=== PATIENT | male | born 1950 | race Caucasian/White ===

== ENCOUNTER 2020-04-22 18:59 | Emergency (ER) | payer OTHER ==
[~2020-04-22] VITALS: Ht 180.3 cm; Wt 77.1 kg
[~2020-04-22 18:59] MED LIST: ALLOPURINOL 30300 M2 PO; IMBRUVICA140 MG PO; IRON325 PO; VITAMIN B-12100 MCG PO; [UNRECOGNIZED DRUG - OTHER] PO
[2020-04-22] MEDS ORDERED: FLAGYL500 M1 PO (21:38)
[2020-04-22] MEDS ORDERED: CLINDAMYCIN HC150 MG PO (21:38)
[2020-04-22 21:55] VITALS: BP 119/59
== END 2020-04-22 21:56 | disposition home or self-care (01) ==
LOC: ER 18:59
DX: L03.114 Cellulitis of left upper limb (principal); Z79.899 Other long term (current) drug therapy; Z88.0 Allergy status to penicillin

== ENCOUNTER 2021-07-27 08:59 | Inpatient (IN) | payer OTHER ==
[~2021-07-27] VITALS: Ht 180.3 cm; Wt 70.8 kg
[~2021-07-27 08:59] MED LIST changes: +CLINDAMYCIN HC150 MG PO; +FLAGYL500 M1 PO
[2021-07-27 09:07] VITALS: BP 119/45
[2021-07-27 09:41] LABS: HEMATOCRIT 34.3 % (42.0-52.0); HEMOGLOBIN 10.6 gm/dL (14.0-18.0); MCH 31.6 pg (26.0-34.0); MCV 102.1 fL (80.0-100.0); RBC 3.36 mil/uL (4.50-6.00); RDW 17.4 % (10.5-14.5)
[2021-07-27 09:54] LABS: WBC 106.3 thou/uL (4.0-11.0)
[2021-07-27 10:03] LABS: CALCIUM 8.7 mg/dL (8.5-10.1); POTASSIUM 5.2 mmol/L (3.5-5.1)
[2021-07-27 10:12] LABS: ALBUMIN 3.6 g/dL (3.4-5.0); TOTAL BILIRUBIN 1.1 mg/dL (0.2-1.0); TOTAL PROTEIN 5.8 g/dL (6.4-8.2)
[2021-07-27 11:05] LABS: ABSOLUTE NEUTROPHILS 2.1 thou/uL (1.4-8.2)
[2021-07-27 11:07] LABS: ATYPICAL LYMPHS 12 %; BLASTS 1 %
[2021-07-27 11:08] LABS: ANISOCYTOSIS 1+
[2021-07-27 11:09] LABS: PLATELET COUNT 60 thou/uL (150-400)
[2021-07-27] MEDS ORDERED: METFORMIN HCL1000 MG PO (11:52)
[2021-07-27 13:15] VITALS: BP 120/64
[2021-07-27 13:31] VITALS: BP 129/58
[2021-07-27 19:12] VITALS: BP 144/79
--- NOTE | 2021-07-27 22:53 | NUR ---
PT ALERT AND ORIENTED X4. VSS 98.8. NO C/O PAIN SO FAR TONIGHT. 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 NO DRAINAGE NOTED. SCAB INTACT. HAND IS SWOLLEN. 2+ EDEMA NOTED. BS 68 HS SNACK GIVEN WITH OJ. BS 108 AFTER SNACK. WILL GIVENA BX ORDERED IV. NO S/S DISTRESS.
[2021-07-28 03:06] LABS: GLYCOHEMOGLOBIN (HGB A1C) 10.3 % (4.8-5.6)
[2021-07-28 03:18] VITALS: BP 121/57
[2021-07-28 06:06] LABS: IgA 10 mg/dL (61-437); IgG 251 mg/dL (603-1613)
[2021-07-28 06:14] LABS: HEMATOCRIT 30.2 % (42.0-52.0); HEMOGLOBIN 9.7 gm/dL (14.0-18.0); MCH 32.3 pg (26.0-34.0)
[2021-07-28 06:17] LABS: MCHC 32.2 g/dL (28.0-37.0); MCV 100.4 fL (80.0-100.0); RBC 3.01 mil/uL (4.50-6.00); RDW 17.3 % (10.5-14.5)
[2021-07-28 06:34] LABS: WBC 72.4 thou/uL (4.0-11.0)
[2021-07-28 06:36] LABS: CALCIUM 8.5 mg/dL (8.5-10.1); CREATININE 0.9 mg/dL (0.7-1.3); POTASSIUM 4.6 mmol/L (3.5-5.1)
--- NOTE | 2021-07-28 06:44 | NUR ---
PT PROGRESSING TOWARDS D/C GOALS. VSS LOW GRADE TEMP. WBC HAS IMPROVED TO 72.4. COUNSELING CASE MANAGER NOTIFIED. NO ORDERS GIVEN. PT DENIED NEED FOR PAIN PILL THIS AM. RIGHT ARM UP ON PILLOWS. PT HAS BEEN NPO AFTER MN. PT GOING FOR MRI.
[2021-07-28 07:06] VITALS: BP 117/59
[2021-07-28 07:08] LABS: IgM < 5 mg/dL (15-143)
--- NOTE | 2021-07-28 13:57 | NUR ---
PT ALERT ORIENTED X4, DENIES CHEST PAIN, NAUSEA OR VOMITTING. ON ROOM AIR. HAD MRI OF THE RUGHT HAND TODAY. THE HAND LOOKS LESS SWOLLEN, CONTINUE TO HAVE SOME REDDNESS AND WARMTH. PRDERS FOR PT TO TX TO 4S, GIVEN BY MECCA ANN TO GIVE ROBERT REPORT NO ANSWER ANA
[2021-07-28 14:26] VITALS: BP 118/65
--- NOTE | 2021-07-28 16:21 | NUR ---
INITIAL ASSESSMENT: SW reviewed chart and spoke with nursing and attending physician. Pt was admitted from home due to right hand cellulitis. Pt with hx of CLL. Pt is on IV abx. MRI is pending at this time. SW met with pt at bedside. Introduced role of SW. Pt is alert/orientated x 4. Pt reports he lives at home. Prior to admission, pt was independent with ADLs. No use of DME. Pt states he has had HH in the past, but is unsure the name of HH provider. Pt has also used home infusion in the past. No hx of post-acute placement. Pt's PCP is Dr. Raji Sanchez. Pt's oncologist is Dr. Dubois. Pt to transfer to from 3W this afternoon. Plan is for pt to discharge home when medically stable. SW is following to assist as needed with discharge planning.
[2021-07-28 16:27] VITALS: BP 124/67
--- NOTE | 2021-07-28 16:53 | NUR ---
Pt transferred from 3W. Pt a&ox4. IV antibiotics infusing. Rt hand swollen and warm to the touch. Home med in ot's bin. Family at bedside. Will continue to monitor.
[2021-07-28 20:20] VITALS: BP 113/91
--- NOTE | 2021-07-29 03:48 | NUR ---
ASSUMED PT CARE AT 1900.PT ALERT/CALM AND PLEASANT.PT C/O PAIN TO HIS R HAND,MANAGED WITH MED.R HAND SWOLLEN,RED AND WARM TO TOUCH.PT CONT ON IV ABX.PT UP ADLIB IN HIS ROOM WITH A STEADY GAIT.VANCO TROUGH WAS 10.PT ABLE TO MAKE HIS NEEDS KNOWN.CALL LIGHT WITHIN REACH.
[2021-07-29 08:09] VITALS: BP 107/64
--- NOTE | 2021-07-29 10:11 | HC ---
[facility] [place] [address] CONSULTATION Name: JOSEPH ALBARADO Room #: 438-P ADM IN M.R.#: [id number] Admission: 07/27/21 Attend Phys: Ragini Contreras MD Discharge: Date of : 46 Report #: [id number] THIS REPORT FOR: cc: FAM - Family physician unknown FAM - Family physician unknown Rafael Dubois MD ~ cc: Sergey Fletcher MD, Marko Thornton DATE OF SERVICE: 07/28/2021 REQUESTING PHYSICIAN: Dr. Ragini Contreras REASON FOR CONSULTATION: History of CLL. HISTORY OF PRESENT ILLNESS: The patient is a 70-year-old gentleman, very well known to me, who was originally diagnosed with CLL in 2003 with a white count of 271,000. He most recently has been on Imbruvica 420 mg daily with a white count recently around 24,000, platelets around 42,000 and a hemoglobin around 10.3. The patient was working last week and he got his finger pinched between the truck bed and a tire rim and about 3 days later over the weekend, he developed some puffiness at the back of his hand. He was seen in the ER last night and admitted for antibiotics for cellulitis. Yesterday, his white count was 106,000, today at 72,000. Hemoglobin fairly stable at 9.7, platelets at 42,000. Note that his chemistries are good. His ANC was 2100. The patient denies definite fever, though he did feel warm last night. No definite sweats. He is aware of small lymph nodes in both axilla. He does not have abdominal pain. No recent diarrhea, no new constipation. No new skin rashes other than from scratching himself working. PAST MEDICAL HISTORY: Notable for the chronic lymphocytic leukemia diagnosed in 2003. Back then, he had prednisone and Cytoxan, then he had FCR last given in 12/2004. He also had ibrutinib begun on 12/06/2016. He has recently been on 420 mg daily. He is having further improvement in his disease. He also has a history of diabetes type 2, history of optic neuritis due to multiple sclerosis. He also has had some mild anemia and mild thrombocytopenia. SOCIAL HISTORY: He is . 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 He appears to have a supportive family. He is a never smoker. He does drink may be alcohol, maybe 6 cans of beer per week. No vaping. MEDICATIONS: Currently include hydrocodone p.r.n., insulin on a sliding scale, Imbruvica restarted at 420 mg. He is also on cefepime 2 grams q. 12 hours. He is on electrolyte replacements. Also, vancomycin 1 gram q. [address] [address] CONSULTATION Name: JOSEPH ALBARADO Room #: 438-P ADM IN M.R.#: [id number] Admission: 07/27/21 Attend Phys: Ragini Contreras MD Discharge: Date of : 46 Report #: [id number] PHYSICAL EXAMINATION: GENERAL: The patient appears his stated age. VITAL SIGNS: Height is 5 feet 11, 180.3 cm; weight 156 pounds or 70.85 kilograms. Recent temperature 98.6, blood pressure 117/59, O2 sat 98%, respirations 20, pulse 65. HEENT: Face is symmetrical. LUNGS: Clear. Posterior and anterior symmetric, unlabored. HEART: Regular rate. LYMPH NODES: Does have some small lymph nodes ____ in both axillae, but more underneath the right axilla where they are more maybe ____ or 1 cm in size versus the ones on the left side are more like pea or corn size. ABDOMEN: Does have a spleen that is at the costal margin on the left, down about maybe 1 or 2 cm, which is an improvement and most recently stable for this patient. EXTREMITIES: He does have some puffiness on the back of his right hand, seen it for the first time, so I do not know if this is improved from yesterday or not, patient thinks it is not much different yet. LABORATORY DATA: Lab count as mentioned above is notable for the white count now at around 70,000. Creatinine of 0.9, glucose of 205. Transaminases normal. Total bilirubin slightly up at 1.1. White count was 72.4 this morning, hemoglobin 9.7, MCV 100.4, platelets of 42. ANC yesterday was 2100. IgG low at 251, though has been below the 300 for about the last 8 months in our office. Note that his IgA and IgM are also low. IMAGING: Done here including some soft tissue of the right hand do not show any fluid collection. I believe an MRI is pending. ASSESSMENT AND PLAN: 1. Chronic lymphocytic leukemia. We will restart Imbruvica 420 mg daily and monitor white count. Neutrophils appear adequate for helping fight infection. 2. Anemia. Hemoglobin stable. Monitor. 3. Thrombocytopenia. No unusual bleeding. Continue monitoring. 4. Cellulitis. Continue antibiotics per Infectious Disease. 5. Hypogammaglobulinemia, not new. From my point, I do not feel like replacement is necessary, but we will defer to Infectious Disease if they feel otherwise. 6. Diabetes type 2. Management per others. 7. History of optic neuritis due to multiple sclerosis. No current issues. <ELECTRONICALLY SIGNED> By: Rafael Dubois MD 07/29/21 [id number] [id number] Rafael Dubois MD /nt
--- NOTE | 2021-07-29 11:26 | NUR ---
ASSUMED PT CARE THIS AM. PT IS ALERT & ORIENTED X4. PT HAS IV SITE ON LFA SALINE LOCKED. PT IS ACCUCHECK ACHS. PT C/O OF CONSTIPATION AND GIVEN MIRALAX THIS AM. PT IS UP AD LUCIE. CHANGED SCHEDULED HOME MED PER PT REQUEST. WILL CONTINUE TO MONITOR PT. FOLLOW POC.
[2021-07-29 11:27] LABS: MCHC 31.1 g/dL (28.0-37.0); RDW 17.5 % (10.5-14.5)
[2021-07-29 11:29] LABS: HEMATOCRIT 33.4 % (42.0-52.0); HEMOGLOBIN 10.4 gm/dL (14.0-18.0); MCH 31.9 pg (26.0-34.0); MCV 102.3 fL (80.0-100.0); RBC 3.27 mil/uL (4.50-6.00)
[2021-07-29 11:32] LABS: WBC 96.2 thou/uL (4.0-11.0)
--- NOTE | 2021-07-29 13:33 | NUR ---
SW reviewed chart and spoke with nursing and attending physician. Ortho consult to evaluate pt's right hand cellulitis. Pt remains on IV abx. Plan is for pt to discharge home when medically stable. ECHO is following to assist as needed with discharge planning.
[2021-07-29 16:15] VITALS: BP 113/61
[2021-07-29 19:17] VITALS: BP 112/63
[2021-07-30 04:27] VITALS: BP 108/53
[2021-07-30 07:49] VITALS: BP 122/67
--- NOTE | 2021-07-30 08:59 | NUR ---
ASSUMED PT CARE THIS AM. PT IS ALERT & ORIENTED X4. PT HAS IV SITE ON LFA SALINE LOCKED. PT IS UP AD LUCIE. PT IS ACCUCHECK ACHS. PT HAS BEEN NPO SINCE MIDNIGHT. WILL HAVE SURGERY TODAY. PT IS ON ROOM AIR. SENT COVID SWAB TO LAB LAB THIS AM. PT HAS BEEN AMBULATING THE HALLWAY. GIVEN REPORT TO PREOP NURSE THIS AM. WILL CONTINUE TO MONITOR PT. FOLLOW POC.
--- NOTE | 2021-07-30 11:48 | NUR ---
SW reviewed chart and spoke with nursing and attending physician. Pt is currently off the unit having I&D of right hand. Pt is on IV abx. Plan is for pt to discharge home when medically stable. ECHO is following to assist as needed with discharge planning.
[2021-07-30 16:06] VITALS: BP 106/60
[2021-07-30 19:40] VITALS: BP 107/53
--- NOTE | 2021-07-31 02:59 | NUR ---
PT DENIED PAIN/N/V SO FAR.UP ADLIB IN THE ROOM WITH A STEADY GAIT.DRSG TO HIS R HAND INTACT WITH MIN SEROUSANGUINEOS DRAINAGE NOTED.BG MONITORED,COVERAGE GIVEN.PT LOOKING FORWARD TO BE DC SOON.CALL LIGHT WITHIN REACH.
[2021-07-31 04:10] VITALS: BP 103/59
[2021-07-31 07:28] VITALS: BP 111/63
[2021-07-31 12:08] VITALS: BP 111/63
--- NOTE | 2021-07-31 12:09 | NUR ---
ECHO reviewed chart and spoke with nursing and attending physician. Pt is s/p I&D of right hand due to cellulitis. Awaiting cultures at this time. Pt will most likely need home IV abx. ECHO met with pt at bedside to discuss discharge plan. Pt is aware and in agreement with plan. Pt reports he used [facility] earlier in the year and would like to use them again. SW confirmed pt's phone number and address. Pt will be staying with his girlfriend at time of discharge. Pt will need PICC line placed prior to discharge. Pt is agreeable with discharge plan. ECHO faxed referral to [facility] and notified [facility] liaison. Awaiting final ID recommendations and insurance coverage. ECHO is following to assist as needed with discharge planning.
[2021-07-31 15:34] VITALS: BP 122/97
--- NOTE | 2021-07-31 18:24 | NUR ---
A/O X 4. ROOM AIR. AD LUCIE. LEFT FOREAR, IV SALINE LOCKED. BS 202 @ DINNER, 10 UNITS INSULIN GIVEN. RIGHT HAND WOUND CARE COMPLETED- PACKING SLIGHTLY PULLED OUT PER ORDER. NORCO GIVEN FOR PAIN.
[2021-07-31 20:53] VITALS: BP 122/59
--- NOTE | 2021-08-01 03:49 | NUR ---
PT UP AD LUCIE. WALKING THE HALLWAYS. IV INTACT AND ABX GIVEN. RT HAND DRESSING INTACT. PICC PLACEMENT TOMORROW. CALL LIGHT AT REACH AND WILL CONT TO MONITOR.
[2021-08-01 07:34] VITALS: BP 107/61
--- NOTE | 2021-08-01 11:29 | NUR ---
A/O X 4. ROOM AIR. AD LID. LEFT FOREARM IV. AC HS ACCU CHECK 150 @ BREAKFAST. RIGHT HAND DRESSING CHANGE-SUTURES INTACT, RED BLOOD NOTED, AREA WARM, SWOLLEN AND PAINFUL. NORCO GIVEN FRO PAIN PRN. PICC LINE EING PLACED TODAY FOR AT HOME IV ABT THERAPY.
--- NOTE | 2021-08-01 12:17 | NUR ---
VASCULAR ACCESS NURSE ROUNDING TO PLACE PICC. THE PATIENT WAS STANDING IN THE ROOM AND REFUSED PICC PLACEMENT TODAY. HE STATED HE WANTED TO HEAR WHAT THE CULTURE RESULTS WERE BEFORE PICC PLACEMENT. I TOLD HIM I WOULD ROUND AGAIN TO TOMORROW AND AGAIN OFFER TO PLACE THE PICC IF HE ALLOWS. I DID EXPLAIN TO HIM THIS MAY DELAY HIS DISCHARGE IF A DISCHARGE IS WRITTEN AND THE 1 VASCULAR ACCESS NURSE FOR THE DAYS HAS PENDING URGENT AND EMERGENT LINES. HE VERBALIZED UNDERSTANDING. I ALSO SPOKE TO HIS NURSE WELL.
[2021-08-01 15:40] VITALS: BP 106/57
[2021-08-01 20:46] VITALS: BP 118/65
--- NOTE | 2021-08-02 04:18 | NUR ---
RECEIVED CARE OF THIS PATIENT AT 1900. PATIENT ALERT AND ORIENTED X4. UP IN HALLS. DRESSING ON R HAND D/I. ACCUCHECK WAS 166, RECEIVED 8 UNITS LISPRO INSULIN. C/O PAIN, MED GIVEN. SLEPT OFF AND ON DURING NIGHT.
[2021-08-02 08:15] VITALS: BP 126/66
[2021-08-02] MEDS ORDERED: HYDROCODON-ACE1 EAC7 PO (11:28)
--- NOTE | 2021-08-02 12:51 | NUR ---
A LEFT #4F SINGLE LUMEN PICC WAS PLACED PER HOSPITAL POLICY AFTER A BEDSIDE TIMEOUT WAS COMPLETED. THE LINE WAS TRIMMED TO 47CM AND ADVANCED TO 5CM EXTERNAL. THE LINE WAS CONFIRMED AT 5CM EXTERNAL USING SHERLOCK 3CG. THE CONFIRMATION WAS PLACED IN THE CHART AND THE LINE WAS RELEASED FOR USE
--- NOTE | 2021-08-02 13:54 | NUR ---
PT IS A&OX4. PT IS INDEPENDENT WITH CARES AND ADLS AND IS UP AD LUCIE. PT RECEIVED MEDICATIONS ORDERED. PT RECEIVED DISCAHRGE ORDERS. PT DISCHARGE INSTRUCTIONS REVIEWED WITH PT NUMUROUS TIMES, PT WAS NOT PAYING ATTENTION AND NOT LISTENING TO THIS RN ON INSTRUCTIONS. PT KEPT INTRUPTING THIS RN ON DISCHARGE INSTRUCTIONS. PT STATED HE WILL FIGURE IT OUT. THIS RN HIGHLIGHTED ALL NUMBERS PT NEEDED TO CALL ON DISCHARGE INSTRUCTIONS. PT RECEIVED [employer] SCRIPT WELL. PT MEDICATIONS RETURNED TO PT. THIS RN FAXED OVER TO [facility] FOR PT IV MEDICATIONS FOR HOME HEALTH.
--- NOTE | 2021-08-05 13:42 | O ---
[facility] [place] [address] OPERATIVE REPORT Name: JOSEPH ALBARADO Room #: 438-P [facility] IN M.R.#: [id number] Admission: 07/27/21 Attend Phys: Ragini Contreras MD Discharge: 08/02/21 Date of : 46 Report #: [id number] THIS REPORT FOR: cc: FAM - Family physician unknown FAM - Family physician unknown Shai Narvaez MD ~ DATE OF SERVICE: 07/30/2021 PREOPERATIVE DIAGNOSIS: Right hand dorsal abscess. POSTOPERATIVE DIAGNOSIS: Right hand dorsal abscess. PROCEDURE: I and D, right dorsal hand abscess. SURGEON: Shai Narvaez MD. ANESTHESIA: LMA. COMPLICATIONS: None. SPECIMENS: Cultures were taken and sent x 2. CONDITION UPON LEAVING THE OR: Stable. INDICATIONS FOR PROCEDURE: The patient is a 70-year-old gentleman who had a cut to his small finger on his right hand, had gone on to develop cellulitis with subsequent abscess formation on the dorsum of his hand just dorsal to his fifth MCP joint. MRI confirmed a fluid collection in this area with surrounding erythema and signs of abscess. After discussion with him, he elected for I and D of the right dorsal hand abscess. DESCRIPTION OF PROCEDURE: Risks, benefits, alternatives, complications were discussed in detail with the patient including but not limited to risk of anesthesia, risk of damage to nerves, arteries, blood vessels, risk for continued infection and need for reoperation. Informed consent was obtained from the patient. Right hand was appropriately marked in the preoperative holding area. The patient was previously on IV vancomycin and this was continued. He was brought to the operating room and placed in supine position on the operating table. LMA anesthesia was induced without complication. Right hand was prepped and draped in normal sterile fashion. ____ the patient and procedure. All in the operating room in agreement. A longitudinal incision centered over the abscess was made with a 15-blade through the skin. Upon entering the deeper tissue, there is a small amount of purulence noted. Cultures of this were taken x2. The abscess was then ____ breaking up any loculations, thoroughly irrigated with normal saline. It was packed with half-inch iodoform gauze and closed with 3-0 nylon. Soft dressing was applied. [facility] [address] [place] [address] OPERATIVE REPORT Name: JOSEPH ALBARADO Room #: 438-P DIS IN M.R.#: [id number] Admission: 07/27/21 Attend Phys: Ragini Contreras MD Discharge: 08/02/21 Date of : 46 Report #: [id number] The patient tolerated this procedure well and went to recovery room under care of anesthesia postoperatively. <ELECTRONICALLY SIGNED> By: Shai Narvaez MD 08/05/21 1342 [id number] Shai Narvaez MD /nt
== END 2021-08-02 14:00 | disposition home or self-care (01) | DRG 603 ==
LOC: ER 08:59 → EROBS 12:25 → 3W 12:25 → 4S 07-28 14:16
PROVIDERS: Emergency Medicine; Physician Assistant; Specialist; ADMIT Hospitalist; ATTEND Hospitalist
PROC: 0J9J0ZZ Drainage of Right Hand Subcutaneous Tissue and Fascia, Open Approach (ICD-10-PCS; principal; 2021-07-30)
PROC: 05HY33Z Insertion of Infusion Device into Upper Vein, Percutaneous Approach (ICD-10-PCS; 2021-08-02)
DX: L03.113 Cellulitis of right upper limb (principal); L02.511 Cutaneous abscess of right hand; C91.10 Chronic lymphocytic leukemia of B-cell type not having achieved remission; D80.1 Nonfamilial hypogammaglobulinemia; D84.9 Immunodeficiency, unspecified; Z20.822 Contact with and (suspected) exposure to COVID-19; H54.62 Unqualified visual loss, left eye, normal vision right eye; S69.91XA Unspecified injury of right wrist, hand and finger(s), initial encounter; D64.9 Anemia, unspecified; D69.6 Thrombocytopenia, unspecified; E11.9 Type 2 diabetes mellitus without complications; Z86.69 Personal history of other diseases of the nervous system and sense organs; Z88.0 Allergy status to penicillin; Z82.49 Family history of ischemic heart disease and other diseases of the circulatory system; Z83.6 Family history of other diseases of the respiratory system; W45.8XXA Other foreign body or object entering through skin, initial encounter; Y93.89 Activity, other specified; Y92.89 Other specified places as the place of occurrence of the external cause; Y99.8 Other external cause status; Z79.899 Other long term (current) drug therapy
CPT/HCPCS: 10080; 10195; 27000; 50010; 50101; 50386; 56527; 57091; 62110; 62900; 70005